=== PATIENT | female | born 1990 | race Caucasian/White ===

== ENCOUNTER 2017-08-17 07:48 | Day surgery (SDC) | payer OTHER ==
[2017-08-14 11:38] LABS: HEMATOCRIT 40.7 % (36.0-47.0); HEMOGLOBIN 13.7 g/dL (12.0-15.5); MEAN CORPUSCULAR HEMOGLOBIN 30.3 pg (27.0-33.4); MEAN CORPUSCULAR HGB CONC 33.7 g/dL (32.0-36.0); MEAN CORPUSCULAR VOLUME 90 fl (80-97); PLATELET COUNT 332 10^3/uL (150-450); RED BLOOD COUNT 4.52 10^6/uL (3.72-5.28); RED CELL DISTRIBUTION WIDTH 13.2 % (11.5-14.0); WHITE BLOOD COUNT 10.5 10^3/uL (4.0-10.5)
[2017-08-14 11:57] LABS: ALANINE AMINOTRANSFERASE 50 U/L (9-52); ALBUMIN 4.5 g/dL (3.5-5.0); ALKALINE PHOSPHATASE 47 U/L (38-126); ANION GAP 9 (5-19); ASPARTATE AMINO TRANSFERASE 28 U/L (14-36); BILIRUBIN,DIRECT 0.2 mg/dL (0.0-0.4); BILIRUBIN,TOTAL 0.3 mg/dL (0.2-1.3); BLOOD UREA NITROGEN 16 mg/dL (7-20); CALCIUM 9.9 mg/dL (8.4-10.2); CARBON DIOXIDE 30 mmol/L (22-30); CHLORIDE 102 mmol/L (98-107); GLUCOSE 88 mg/dL (75-110); POTASSIUM 4.4 mmol/L (3.6-5.0); SODIUM 140.8 mmol/L (137-145)
[~2017-08-17 07:48] MED LIST: CEFAZOLIN 2 GM/D5W RTU 2 GM/50 ML RTUPB IV PRN; CEFAZOLIN SODIUM 2 GM in NORMAL SALINE 100 ML IV PRN; LACTATED RINGERS 1000 ML IV PRN; LIDOCAINE 0.5% INJ-PF (5 MG/ML) 50 ML SDV SUBCUT PRN
[2017-08-17] MEDS ORDERED: MIDAZOLAM 2 MG/2 ML INJ ONE (10:28)
[2017-08-17] MEDS ORDERED: PROPOFOL INJ 200 MG/20 ML VIAL IV ONE (10:28)
[2017-08-17] MEDS ORDERED: FENTANYL CITRATE INJ/PF 100 MCG/2 ML AMPUL ONE (10:28)
[2017-08-17] MEDS ORDERED: ONDANSETRON HCL INJ/PF 4 MG/2 ML SDV ONE (10:28)
[2017-08-17] MEDS ORDERED: ACETAMINOPHEN 100 ML IV ONE (10:28)
[2017-08-17] MEDS ORDERED: FENTANYL CITRATE INJ/PF 250 MCG/5 ML AMPULE ONE (10:28)
[2017-08-17] MEDS ORDERED: METHYLENE BLUE 50 MG/10 ML AMPULE ONE (10:30)
[2017-08-17] MEDS ORDERED: BUPIVACAINE HCL 0.25 % INJ/PF (2.5 MG/1 ML) 30 ML VIAL ONE (10:31)
[2017-08-17] MEDS ORDERED: EPHEDRINE SULFATE INJ 50 MG/1 ML AMPULE ONE (11:40)
[2017-08-17] MEDS ORDERED: MORPHINE SULFATE 10 MG/ML INJ IV PRN ×2 (12:15→13:27)
[2017-08-17] MEDS ORDERED: FENTANYL CITRATE INJ/PF 100 MCG/2 ML AMPUL IV PRN ×3 (12:15)
[2017-08-17] MEDS ORDERED: PROMETHAZINE HCL INJ 25 MG/1 ML VIAL IV PRN ×2 (12:15→13:31)
[2017-08-17] MEDS ORDERED: DIPHENHYDRAMINE HCL 50 MG/ML VIAL IV PRN (12:15)
[2017-08-17] MEDS ORDERED: MEPERIDINE HCL/PF INJ 25 MG/1 ML DISP.SYRIN IV PRN (12:15)
[2017-08-17] MEDS ORDERED: OXYCODONE-ACETAMINOPHEN 5-325 MG TABLET PO PRN (13:26)
[2017-08-17] MEDS ORDERED: OXYCODONE HCL IR 5 MG TABLET PO PRN (13:26)
[2017-08-17] MEDS ORDERED: ONDANSETRON HCL INJ/PF 4 MG/2 ML SDV IV PRN (13:30)
[2017-08-17] MEDS ORDERED: PROMETHAZINE HCL INJ 25 MG/1 ML VIAL ONE (13:39)
[2017-08-17] MEDS ORDERED: NEOSTIGMINE METHYLSULFATE 10 MG/10 ML VIAL ONE ×2 (13:39→15:10)
[2017-08-17] MEDS ORDERED: LIDOCAINE 2% INJ-PF (20 MG/ML) 2 ML AMPUL ONE (13:39)
[2017-08-17] MEDS ORDERED: GLYCOPYRROLATE INJ 0.4 MG/2 ML VIAL ONE ×2 (13:39→15:10)
[2017-08-17] MEDS ORDERED: DEXAMETHASONE SOD PHOSPHATE INJ 4 MG/1 ML VIAL ONE (13:39)
[2017-08-17] MEDS ORDERED: SUCCINYLCHOLINE CHLORIDE INJ 200 MG/10 ML VIAL ONE ×2 (13:39→15:10)
[2017-08-17] MEDS ORDERED: VECURONIUM BROMIDE INJ 10 MG VIAL IV ONE ×2 (13:39→15:10)
--- NOTE | 2017-08-17 14:24 | OPERATIVE REPORT E ---
Operative Report NAME: PETEY ZAMUDIO : 1990 AGE: 27Y DATE OF SURGERY: 08/17/2017 ROOM: PREOPERATIVE DIAGNOSES: 1. CHRONIC PELVIC PAIN. 2. POLYCYSTIC OVARIAN SYNDROME. 3. GENDER DYSPHORIA. POSTOPERATIVE DIAGNOSES: 1. CHRONIC PELVIC PAIN. 2. POLYCYSTIC OVARIAN SYNDROME. 3. GENDER DYSPHORIA. OPERATION: 1. Robotic total laparoscopic hysterectomy. 2. Bilateral salpingo-oophorectomy. 3. Cystoscopy. SURGEON: Lety Wallace [employer]OLD [employer]STRUCTION SUPERVISOR: Erlin Bravo M.D. ANESTHESIA: General. ESTIMATED BLOOD LOSS: 100. INTRAVENOUS FLUIDS: 1800 mL normal saline. URINE OUTPUT: 300 mL clear urine. COMPLICATIONS: None. INDICATIONS: The patient is a 27-year-old 0 with a history of chronic pelvic, polycystic ovarian syndrome and gender dysphoria who desires permanent sterilization. Patient desires definitive surgical management, removal of her uterus, ovaries and tubes. Patient was counseled extensively by hospital physicians and surgeons and still desires to proceed with the procedure. This patient was counseled on the procedure including, but not limited to bleeding, infection, injury to surrounding organs and tissue including bladder, bowel, vasculature, need of transfusion with packed red blood cells or the possibility of turning the case into an exploratory laparotomy in case there is extensive bleeding that cannot be identified or controlled via the robot. The patient understood and consented to the procedure, and agreed to proceed to the operating room. FINDINGS: A normal uterus, tubes and ovaries bilaterally. Normal cystoscopy. DESCRIPTION OF PROCEDURE: Patient was taken to the operating room and general anesthesia was induced without difficulty. Patient was placed in the dorsal lithotomy position and was sterilely prepped and draped in the usual sterile fashion. A Patsy hugger was placed to maintain control of core body temperature. Crow catheter was placed in the bladder. Single-toothed tenaculum was placed into the cervix and grasped and the cervical os was dilated. The uterus sounded to approximately 9 cm. Two figure of eight stitches around 3 and 9 o'clock were placed for anchoring stitches before placing the Vcare and the VCare manipulator was attached to the uterus with a cervical ring and anchored to the stitches on the right and the left. A weighted speculum and single-toothed tenaculum were removed. Two sutures were placed on the lateral aspect of the cervix to be used as traction later and for hemostasis as well and were anchored to the stitches on the right and the left within the ring itself. A horizontal supraumbilical incision was performed where the Veress needle was introduced. Veress needle was placed in the abdominal cavity. Through the Veress needle, carbon dioxide was infused until pneumoperitoneum was established and maintained. This was done after a drop test was successfully performed. The supraumbilical incision was slightly extended. A cutdown was performed. Fascia was grasped with the Aba and cut with the scissors and then the 12 mm trocar was inserted and placed in the abdominal cavity under direct visualization with a laparoscope without any difficulty. Trocar was removed. Robotic laparoscope was placed on abdominal cavity. Please see the above findings. Three additional ports were placed, one in the right lower, one in the left lower, and one in the right upper quadrant were inserted under direct visualization. Special attention was paid to the ureters bilaterally and the ureters were both well away from the surgical field at all times. Peristalsing was visualized and with a normal nature. At this point after visualizing the ureters and making sure they were away from the surgical field, the right infundibulopelvic ligament was cauterized and transected. The right utero-ovarian ligament was cauterized and transected. The right round ligament was cauterized and transected all the way down to the level of the uterines. The right bladder flap on the side was initiated on the right side and blood vessels were cauterized and transected as well. On the contralateral side, it was performed in a similar fashion where the infundibulopelvic ligament was cauterized and transected. The utero-ovarian ligament cauterized and transected. Round ligament cauterized and transected all the way down to the level of the uterines including the uterine vasculature cauterized and transected. Bladder flap was continued and connected to the contralateral side connecting the other side and pushing the bladder down as much as possible. The left uterine blood vessel was cauterized and transected. Again, visualization of *------* were identified and I was far away from the surgical side of the colpotomy and the ureters were peristalsing and normal so far at this part of the procedure. At this point, an anterior colpotomy was performed, circumscribing the cervix. After performing the anterior and posterior colpotomy and connecting in a circumscribed fashion, the uterus was removed with the cervix through the VCare. The vaginal cuff was closed using a V-Loc suture in a continuous fashion. At this time, irrigation was performed. Vaginal cuff was completely intact and no oozing was visualized from the pelvic side woody or the vaginal cuff. The bladder was far away from the vaginal cuff. Visualization of both ureters were performed again. Both ureters were peristalsing and acting normal. FloSeal was applied to the vaginal cuff for prophylactic hemostasis. At this point after performing the vaginal cuff closure with a V-Loc suture and injecting the FloSeal in the vaginal cuff, I asked Anesthesia to give methylene blue for the cystoscopy portion preparation. At this point, cystoscopy was performed. Cystoscope revealed completely normal ureters with blue view coming through bilateral. The right and left ureters with strong efflux. There were no foreign bodies or injuries or sutures identified in the bladder. The double bubble sign was identified, and the integrity of the bladder wall was completely normal. At this point, the cystoscope was removed. A sponge stick was inserted vaginally to remove any residual blood clots and blood from the vagina mucosa. At this point, there was a posterior *------* laceration. Skid jennifer using the 4-0 Vicryl and a single stitch was used to reapproximate the tissue. Hemostasis was obtained. Further survey of the vaginal mucosa revealed posterior vaginal mucosa laceration. Using a 309 Vicryl and a CT1 in a continuous running fashion was performed reapproximating the tissue. Hemostasis was obtained. There were no further lacerations identified anteriorly or on the side woody of the vaginal mucosa. At this point, the laparoscope was removed, trocars were removed. Incision was repaired with 4-0 Monocryl in a subcuticular fashion. Of course, the 12 mm trocar using the URRR fix reapproximated the fascia and all the ports were closed with 4-0 Monocryl in a subcuticular fashion. Dermabond was applied on top of it. All sponge and needle counts were correct x2. Patient did receive prophylactic IV antibiotics. Patient tolerated the procedure well and was taken to the recovery room in stable condition. DICTATING PHYSICIAN: Lety Wallace MD [id number] PHY#: [id number] ID: [id number] JOB#: [id number] ACCT: [id number] cc:Lety Tay
[2017-08-17 17:23] VITALS: BP 126/65
== END 2017-08-17 17:40 | disposition home or self-care (01) ==
LOC: OROUT 07:48 → 2S 14:06 → OROUT 17:40
PROVIDERS: ATTEND Obstetrics & Gynecology
DX: E28.2 Polycystic ovarian syndrome (principal); F64.9 Gender identity disorder, unspecified; G89.29 Other chronic pain; R10.2 Pelvic and perineal pain; N84.0 Polyp of corpus uteri; N83.02 Follicular cyst of left ovary; N83.01 Follicular cyst of right ovary; Z79.890 Hormone replacement therapy
CPT/HCPCS: 58571; S2900; 36415; 80053; 81025; 840; 85027; 86850; 86900; 86901; 88307; J0131; J0330; J0690; J1100; J2250; J2405; J2550; J2704; J3010; J3490; Q9968